=== PATIENT | female | born 1980 | race Caucasian/White ===

== ENCOUNTER 2016-03-21 10:56 | Outpatient (CLI) | payer SELFPAY ==
[~2016-03-21] VITALS: Ht 165.1 cm; Wt 78.1 kg
[2016-03-21 10:57] VITALS: BP 92/45; PULSE 71
[2016-03-21 11:02] VITALS: Ht 165.1 cm; Wt 78.1 kg
[2016-03-21 11:03] VITALS: BP 92/45; PULSE 71; RESP 19
[2016-03-21] MEDS ORDERED: [UNRECOGNIZED DRUG - OTHER] (11:07)
[2016-03-21] MEDS ORDERED: PRENAT PO (11:07)
== END 2016-03-21 11:23 | disposition left against medical advice (07) ==
LOC: OBT 10:56 → L-D 10:57 → OBT 11:23
PROVIDERS: ATTEND Obstetrics & Gynecology Obstetrics
DX: O36.8190 Decreased fetal movements, unspecified trimester, not applicable or unspecified (principal); Z3A.00 Weeks of gestation of pregnancy not specified; Z53.21 Procedure and treatment not carried out due to patient leaving prior to being seen by health care provider
CPT/HCPCS: G0463